=== PATIENT | female | born 1950 | race Caucasian/White ===

== ENCOUNTER 2017-10-14 09:38 | Emergency (ER) | payer BC ==
[~2017-10-14] VITALS: Ht 167.6 cm; Wt 99.5 kg
--- OUTSIDE RECORDS SUMMARY | ~2017-10-14 | XMS | Clinical Summary ---
Demographics + + + | Address | [address] | | | [place] [address] | + + + | Home Phone | | + + + | Preferred Language | Unknown | + + + | Marital Status | | + + + | Baptism Affiliation | Unknown | + + + | Race | White | + + + | Ethnic Group | Not or | + + + Author + + + | Author | [facility] | + + + | Organization | [facility] | + + + | Address | Unknown | + + + | Phone | Unavailable | + + + Support + + + + + | Name | Relationship | Address | Phone | + + + + + | ALBERTO Lenz | ECON | [address] | | | | | [place] | | | | | [address] | | + + + + + Care Team Providers + +------+ + | Care Shank Archer Name | Role | Phone | + +------+ + | Kevin Alonso MD | PP | | + +------+ + Source Comments DORIS is fully live on both [facility] and [facility] Allergies + + + + + + | Active Allergy | Reactions | Severity | Noted | Comments | | | | | Date | | + + + + + + | Oxycodone-Acetaminop | | | 02/16/20 | | | hen | | | 06 | | + + + + + + Current Medications + + +-------+---------+------+------+-------+ | Prescription | Sig. | Disp. | Refills | Star | End | Statu | | | | | | t | Date | s | | | | | | Date | | | + + +-------+---------+------+------+-------+ | liothyronine 5 mcg | take 2 tablets by | | | 02/0 | | Activ | | oral tablet | mouth once daily | | | 2/20 | | e | | | | | | 17 | | | + + +-------+---------+------+------+-------+ | buPROPion XL 300 | Take by mouth. | | | 09/0 | | Activ | | mg oral tablet | | | | 5/20 | | e | | extended release 24 | | | | 15 | | | | hr | | | | | | | + + +-------+---------+------+------+-------+ | ranitidine 300 mg | Take by mouth. | | | 09/0 | | Activ | | oral tablet | | | | 11/04 | | e | | | | | | 15 | | | + + +-------+---------+------+------+-------+ | pantoprazole 40 mg | Take by mouth. | | | 01/17 | | Activ | | oral tablet,delayed | | | | 03/07 | | e | | release (DR/EC) | | | | 15 | | | + + +-------+---------+------+------+-------+ | NYSTATIN (NYSTOP | as needed. | | | | | Activ | | TOP) | | | | | | e | + + +-------+---------+------+------+-------+ Active Problems + + + | Problem | Noted Date | + + + | Extranodal marginal zone B-cell lymphoma (HCC) | | + + + Social History + +-------+ +--------+------+ | Tobacco Use | Types | Packs/Day | Years | Date | | | | | Used | | + +-------+ +--------+------+ | Never Smoker | | | | | + +-------+ +--------+------+ + +---+---+---+ | Smokeless Tobacco: | | | | | Never Used | | | | + +---+---+---+ + + +---------+ + | Alcohol Use | Drinks/We | oz/Week | Comments | | | ek | | | + + +---------+ + | Yes | | | | + + +---------+ + + + + | Sex Assigned at | Date Recorded | | | | + + + | Not on file | | + + + Last Filed Vital Signs + + + + | Vital Sign | Reading | Time Taken | + + + + | Blood Pressure | 126/78 | 11/16/2016 11:26 AM PDT | + + + + | Pulse | 119 | 11/16/2016 11:26 AM PDT | + + + + | Temperature | 36.9 C (98.4 F) | 11/16/2016 11:26 AM PDT | + + + + | Respiratory Rate | 16 | 11/16/2016 11:26 AM PDT | + + + + | Oxygen Saturation | 98% | 11/16/2016 11:26 AM PDT | + + + + | Inhaled Oxygen | - | - | | Concentration | | | + + + + | Weight | 97.8 kg (215 lb 9.8 | 11/16/2016 11:26 AM PDT | | | oz) | | + + + + | Height | 168 cm (5' 6.14") | 11/16/2016 11:26 AM PDT | + + + + | Body Mass Index | 34.65 | 11/16/2016 11:26 AM PDT | + + + + Plan of Treatment + + + + + | Health Maintenance | Due Date | Last Done | Comments | + + + + + | INFLUENZA VACCINE | | | | | (FLU SHOT) | 8 | | | + + + + + Results Not on filefrom Last 3 Months
--- OUTSIDE RECORDS SUMMARY | ~2017-10-14 | XMS | Clinical Summary ---
Demographics + + + | Address | [address] [place] [address] | | | [place] [address] | + + + | Home Phone | | + + + | Preferred Language | Unknown | + + + | Marital Status | | + + + | Pentecostal Affiliation | 1077 | + + + | Race | Unknown | + + + | Ethnic Group | Unknown | + + + Author + + + | Author | [facility] | | | and [place] | + + + | Organization | [facility] | | | and [place] | + + + | Address | Unknown | + + + | Phone | Unavailable | + + + Support + + + + + | Name | Relationship | Address | Phone | + + + + + | Hiral Harris | ECON | NA | | | | | [place] | | + + + + + | Mahamed Lenz | ECON | [address] | | | | | [place] | | | | | [address] | | + + + + + Care Team Providers + +------+ + | Care Training Specialist Name | Role | Phone | + +------+ + | Kevin Alonso MD | PP | | + +------+ + Allergies + + + + + + | Active Allergy | Reactions | Severity | Noted | Comments | | | | | Date | | + + + + + + | Oxycodone | Rash | Low | 08/09/19 | | | | | | 14 | | + + + + + + | Adhesive & Tape | Other (See Comments) | | 08/09/19 | Skin sloughing | | | | | 14 | | + + + + + + Current Medications + + +-------+---------+------+------+-------+ | Prescription | Sig. | Disp. | Refills | Star | End | Statu | | | | | | t | Date | s | | | | | | Date | | | + + +-------+---------+------+------+-------+ | ALPRAZolam (XANAX) | Take 0.5 mg by mouth | | | | | Activ | | 0.5 mg tablet | 3 times daily as | | | | | e | | | needed. | | | | | | + + +-------+---------+------+------+-------+ | BUPROPION HCL | Take by mouth | | | | | Activ | | | Daily. Not sure of | | | | | e | | | dosage | | | | | | + + +-------+---------+------+------+-------+ | CALCIUM CARBONATE | by Does not apply | | | | | Activ | | | route. | | | | | e | + + +-------+---------+------+------+-------+ | ibuprofen (ADVIL, | Take 400 mg by mouth | | | | | Activ | | MOTRIN) 200 mg | every 6 hours as | | | | | e | | tablet | needed. | | | | | | + + +-------+---------+------+------+-------+ | levothyroxine | Take 200 mcg by | | | | | Activ | | (SYNTHROID, | mouth every morning | | | | | e | | LEVOTHROID) 175 MCG | (before breakfast). | | | | | | | tablet | | | | | | | + + +-------+---------+------+------+-------+ | Liothyronine | Take 3 tablets by | | | | | Activ | | Sodium (CYTOMEL PO) | mouth Daily. Does | | | | | e | | | not know the dosage | | | | | | + + +-------+---------+------+------+-------+ | UNABLE TO FIND | Apply 1 Application | | | | | Activ | | | topically as needed. | | | | | e | | | Med Name: | | | | | | | | Mycostatin Powder | | | | | | + + +-------+---------+------+------+-------+ | pantoprazole | Take 40 mg by mouth | | | | | Activ | | (PROTONIX) 40 mg | Daily. | | | | | e | | tablet | | | | | | | + + +-------+---------+------+------+-------+ | sertraline | Take 100 mg by mouth | | | | | Activ | | (ZOLOFT) 100 mg | Daily. | | | | | e | | tablet | | | | | | | + + +-------+---------+------+------+-------+ | cholecalciferol | Take 1,000 Units by | | | | | Activ | | (VITAMIN D-3) 1,000 | mouth Daily. | | | | | e | | units tablet | | | | | | | + + +-------+---------+------+------+-------+ Active Problems + + + | Problem | Noted Date | + + + | B-cell lymphoma (HCC) | 08/09/2013 | + + + + + | Overview: Recurrent/relapsed MALT lymphoma. Last Assessment | | & Plan: Continue maintenance Rituxan. She'll receive her last | | dose of maintenance Rituxan today | + + Social History + +-------+ +--------+------+ | Tobacco Use | Types | Packs/Day | Years | Date | | | | | Used | | + +-------+ +--------+------+ | Never Smoker | | | | | + +-------+ +--------+------+ + + + | Sex Assigned at | Date Recorded | | | | + + + | Not on file | | + + + Last Filed Vital Signs + + + + | Vital Sign | Reading | Time Taken | + + + + | Blood Pressure | 140/81 | 09/04/2013942 PDT | + + + + | Pulse | 70 | 09/04/2013942 PDT | + + + + | Temperature | 36.7 C (98.1 F) | 09/04/2013942 PDT | + + + + | Respiratory Rate | 16 | 09/04/2013942 PDT | + + + + | Oxygen Saturation | 97% | 09/04/2013942 PDT | + + + + | Inhaled Oxygen | - | - | | Concentration | | | + + + + | Weight | 93 kg (205 lb 0.4 | 09/04/2013942 PDT | | | oz) | | + + + + | Height | 168.5 cm (5' 6.34") | 09/04/2013942 PDT | + + + + | Body Mass Index | 32.75 | 09/04/2013942 PDT | + + + + Plan of Treatment +--------+---------+ + + + | Date | Type | Specialty | Care Team | Description | +--------+---------+ + + + | 10/17/ | Office | | Lan Call | | | 2017 | Visit | | MD Surendra [address] | | | | | | [place] | | | | | | [place] [address] | | | | | | [phone] | | | | | | | | +--------+---------+ + + + + + + + + | Health Maintenance | Due Date | Last Done | Comments | + + + + + | Hepatitis C | | | | | Screening | 3 | | | + + + + + | Vaccine: | | | | | Dtap/Tdap/Td (1 - | 2 | | | | Tdap) | | | | + + + + + | BREAST CANCER | | | | | SCREENING (MAMM Q2 | 3 | | | | YEARS 50-74) | | | | + + + + + | COLON CANCER | | | | | SCREENING | 3 | | | | (COLONOSCOPY EVERY | | | | | 10 YEARS 50-75) | | | | + + + + + | Vaccine: | | | | | Pneumococcal 65+ | 8 | | | | High/Highest Risk (1 | | | | | of 2 - PCV13) | | | | + + + + + | Vaccine: Influenza | | | | | (Season Ended) | 8 | | | + + + + + Results Not on filefrom Last 3 Months Insurance +-------+--------+ +------+-------+---------+ | Payer | Benefi | Subscriber | Type | Phone | Address | | | t Plan | ID | | | | | | / | | | | | | | Group | | | | | +-------+--------+ +------+-------+---------+ | BCBS | BCBS | xxxxxxxxx | PPO | | | | | FEDERA | | | | | | | L FEP | | | | | +-------+--------+ +------+-------+---------+ + +--------+ +--------+ + + | Guarantor Name | Accoun | Relation to | Date | Phone | Billing Address | | | t Type | Patient | of | | | | | | | | | | + +--------+ +--------+ + + | MARIANNE HARRIS | Person | Self [birth year] | Home: | [address] | | | al/Fam | | 1951 | [phone] | [place], | | | [place] | | | [phone] | [place] [phone] | + +--------+ +--------+ + +
--- OUTSIDE RECORDS SUMMARY | ~2017-10-14 | XMS | Clinical Summary ---
Demographics + + + | Address | [address] [place] [address] | | | [place] [address] | + + + | Home Phone | | + + + | Preferred Language | Unknown | + + + | Marital Status | | + + + | Scientologist Affiliation | 1077 | + + + | Race | Unknown | + + + | Ethnic Group | Unknown | + + + Author + + + | Author | [facility] | | | and [place] | + + + | Organization | [facility] | | | and [place] | [...] [place] | | | | | [address] | | + + + + + Care Team Providers + +------+ + | Care Horse Stud Worker Name | Role | Phone | + [...] | Visit | | MD Surendra [address] | | | | | | [place] | | | | | | [place] [address] | | | | | | [phone] | | | | | | | [...] | | al/Fam | | 1951 | [phone] | [place], | | | [place] | | | [address] | [place] [address] | + +--------+ +--------+ + +
--- OUTSIDE RECORDS SUMMARY | ~2017-10-14 | XMS | Encounter Summary ---
Demographics + + + | Address | [address] | | | [place] [address] | + + + | Home Phone | | + + + | Preferred Language | Unknown | + + + | Marital Status | | + + + | Restoration Affiliation | Unknown | + + + | Race | Unknown | + + + | Ethnic Group | Unknown | + + + Author + + + | Author | [facility] | + + + | Organization | [facility] | + + + | Address | Unknown | + + + | Phone | Unavailable | + + + Support + + + + + | Name | Relationship | Address | Phone | + + + + + | Mahamed Lenz | ECON | [address] | | | | | [place] | | | | | [address] | | + + + + + | Hiral Tran | ECON | Unknown | | + + + + + Care Team Providers + +------+ + | Care Marketing And Communications Officer Name | Role | Phone | + +------+ + | Kate Gibbs PA-C | PCP | | + +------+ + Reason for Visit +--------+ + | Reason | Comments | +--------+ + | Other | scheduling | +--------+ + Encounter Details +--------+ + + + + | Date | Type | Department | Care Team | Description | +--------+ + + + + | 10/12/ | Telephone | [facility] | Eli Hood, | Other (scheduling) | | 2018 | | Endocrinology [address] | [address] | | | | | [place] | | | | | | [place] | | | | | | [address] | | | | | | [phone] | | | +--------+ + + + + Social History + +-------+ [...] | | + + +---------+ + | No | 0 | 0.0 | rarely | | | Standard | | | | | drinks or | | | | | | | | | | equivalen | | | | | t | | | + + +---------+ + + + + | Sex Assigned at | Date Recorded | | | | + + + | Not on file | | + + + as of this encounter Plan of Treatment Not on fileas of this encounter Visit Diagnoses Not on filein this encounter"
--- OUTSIDE RECORDS SUMMARY | ~2017-10-14 | XMS | Clinical Summary ---
Demographics + + + | Address | [address] | | | [place] [address] | + + + | Home Phone | | + + + | Preferred Language | Unknown | + + + | Marital Status | | + + + | Yarsani Affiliation | Unknown | + + + | Race | Unknown | + + + | Ethnic Group | Unknown | + + + Author + + + | Author | [facility] | + + + | Organization | [facility] | + + + | Address | Unknown | + + + | Phone | Unavailable | + + + Support + + + + + | Name | Relationship | Address | Phone | + + + + + | Mahamed Lenz | ECON | [address] | | | | | [place] | | | | | [address] | | + + + + + | Hiral Tran | ECON | Unknown | | + + + + + Care Team Providers + +------+ + | Care Manager Of Organizational Development Name | Role | Phone | + +------+ + | Kate Gibbs PA-C | PP | | + +------+ + Allergies + + + + + + | Active Allergy | Reactions | Severity | Noted | Comments | | | | | Date | | + + + + + + | Oxycodone-Acetaminop | Rash | Medium | 03/16/20 | Full body rash, | | hen | | | 15 | fever | + + + + + + Current Medications + + +--------+---------+------+------+-------+ | Prescription | Sig. | Disp. | Refills | Star | End | Statu | | | | | | t | Date | s | | | | | | Date | | | + + +--------+---------+------+------+-------+ | buPROPion | Take 300 mg by mouth | | | 09/0 | | Activ | | (WELLBUTRIN XL) 300 | daily. | | | 5/20 | | e | | MG 24 hr tablet | | | | 15 | | | + + +--------+---------+------+------+-------+ | pantoprazole | Take 40 mg by mouth | | | 08/2 | | Activ | | (PROTONIX) 40 MG | daily. | | | 9/20 | | e | | tablet | | | | 15 | | | + + +--------+---------+------+------+-------+ | ranitidine | Take 300 mg by mouth | | | 09/0 | | Activ | | (ZANTAC) 300 MG | daily. | | | 5/20 | | e | | tablet | | | | 15 | | | + + +--------+---------+------+------+-------+ | Cholecalciferol | Take 2,000 Units by | | | | | Activ | | (VITAMIN D PO) | mouth. | | | | | e | + + +--------+---------+------+------+-------+ | meloxicam (MOBIC) | Take 7.5 mg by mouth | | | | | Activ | | 7.5 MG | daily. 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 | | | | | | | | of thyroid | | | | | | | + + +--------+---------+------+------+-------+ | liothyronine | take 2 tablets by | 60 | 11 | / | | Activ | | (CYTOMEL) 5 MCG | mouth once daily | tablet | | 02/04 | | e | | tablet | | | | 18 | | | + + +--------+---------+------+------+-------+ Active Problems + + + | Problem | Noted Date | + + + | Unspecified hypothyroidism | 03/16/2015 | + + + Encounters +--------+ + + + + | Date | Type | Specialty | Care Team | Description | +--------+ + + + + | 10/12/ | Telephone | | Eli Hood, | Other (scheduling) | | 2017 | | | DIRECTOR OF ARCHIVES | | +--------+ + + + + | 07/20/ | Documentati | | Tatum Johnston, | | | 2017 | on Only | | DIRECTOR OF ARCHIVES | | +--------+ + + + + from Last 3 Months Social History + +-------+ +--------+------+ | Tobacco [...] + + + | Blood Pressure | 142/72 | 10/31/2016 1:12 PM PDT | + + + + | Pulse | 79 | 03/14/2017 8:27 AM PDT | + + + + | Temperature | - | - | + + + + | Respiratory Rate | - | - | + + + + | Oxygen Saturation | 99% | 03/14/2017 8:27 AM PDT | + + + + | Inhaled Oxygen | - | - | | Concentration | | | + + + + | Weight | 96.6 kg (213 lb) | 03/14/2017 8:27 AM PDT | + + + + | Height | - | - | + + + + | Body Mass Index | - | - | + + + + Plan of Treatment + + + + + | Health Maintenance | Due Date | Last Done | Comments | + + + + + | Vaccine: | | | | | Dtap/Tdap/Td (1 - | 2 | | | | Tdap) | | | | + + + + + | Breast Cancer | | | | | Screening | 3 | | | | (Mammogram) | | | | + + + + + | Colon Cancer | | | | | Screening | 3 | | | | (Colonoscopy) | | | | + + + + + | DEXA SCAN SCREENING | | | | | | 8 | | | + + + + + | Vaccine: | | | | | Pneumococcal 65+ | 8 | | | | Low/Medium Risk (1 | | | | | of 2 - PCV13) | | | | + + + + + | Vaccine: Influenza | | | | | (Season Ended) | 8 | | | + + + + + Results Not on filefrom Last 3 Months Insurance +---------+--------+ +------+-------+ + | Payer | Benefi | Subscriber | Type | Phone | Address | | | t Plan | ID | | | | | | / | | | | | | | Group | | | | | +---------+--------+ +------+-------+ + | PREMERA | PREMER | xxxxxxxxx | | | [address] [facility] | | | A BLUE | | | | [place], [place] | | | [place] | | | | [address] | | | FED | | | | | | | PPO | | | | | +---------+--------+ +------+-------+ + + +--------+ +--------+ + + | Guarantor Name | Accoun | Relation to | Date | Phone | Billing Address | | | t Type | Patient | of | | | | | | | | | | + +--------+ +--------+ + + | MARIANNE HARRIS | Person | Self | [birth year] | Home: | [address] | | | [place]l | | 3 | [phone] | [place] | | | [place] | | | [phone] | [phone] | + +--------+ +--------+ + +"
--- OUTSIDE RECORDS SUMMARY | ~2017-10-14 | XMS | Encounter Summary ---
Demographics + + + | Address | [address] | | | [place] [address] | + + + | Home Phone | | + + + | Preferred Language | Unknown | + + + | Marital Status | | + + + | Spiritism Affiliation | Unknown | + + + | Race | Unknown | + + + | Ethnic Group | Unknown | + + + Author + + + | Author | [facility] | + + + | Organization | [facility] | + + + | Address | Unknown | + + + | Phone | Unavailable | + + + Support + + + + + | Name | Relationship | Address | Phone | + + + + + | Mahamed eLnz | ECON | [address] | | | | | [place] | | | | | [address] | | + + + + + | Hiral Tran | ECON | Unknown | | + + + + + Care Team Providers + +------+ + | Care Implementation Coordinator Name | Role | Phone | + +------+ + | Kate Gibbs PA-C | PCP | | + +------+ + Encounter Details +--------+ + + + + | Date | Type | Department | Care Team | Description | +--------+ + + + + | 07/20/ | Documentati | [facility] | Tatum Johnston, | | | 2018 | on Only | Endocrinology [address] | ENGINEER BOOSTER AND EXHAUSTER | | | | | [place] | | | | | | [employer] [place] | | | | | | [address] | | | | | | [phone] | | | +--------+ + + + [...] Treatment Not on fileas of this encounter Results EXTERNAL LAB: HEMOGLOBIN A1C (06/05/2017 1:55 PM) + +-------+ + | Component | Value | Ref Range | + +-------+ + | Hemoglobin A1c, | 5.7 | % | | External | | | + +-------+ + + + + | Specimen | Performing Laboratory | + + + | | [place] [address] [place] | | | [address] | + + + in this encounter Visit Diagnoses Not on filein this encounter"
--- OUTSIDE RECORDS SUMMARY | ~2017-10-14 | XMS | Clinical Summary ---
Demographics + + + | Address | [address] | | | [place] [address] | + + + | Home Phone | | + + + | Preferred Language | Unknown | + + + | Marital Status | | + + + | Sikh Affiliation | Unknown | + + + | Race | White | + + + | Ethnic Group | Not or | + + + Author + + + | Author | [facility] | + + + | Organization | [facility] | + + + | Address | Unknown | + + + | Phone | Unavailable | + + + Support + + + + + | Name | Relationship | Address | Phone | + + + + + | ALBERTO Lenz | ECON | [address] | | | | | [place] | | | | | [address] | | + + + + + Care Team Providers + +------+ + | Care Obstetrics Gyn Name | Role | Phone | + +------+ + | Kevin Alonso MD | PP | | + +------+ + Source Comments DORIS is fully live on both [facility] and [facility] Allergies + + + + + [...]
--- OUTSIDE RECORDS SUMMARY | ~2017-10-14 | XMS | Encounter Summary ---
Demographics + + + | Address | [address] | | | [place] [address] | + + + | Home Phone | | + + + | Preferred Language | Unknown | + + + | Marital Status | | + + + | Evangelical Affiliation | Unknown | + + + | Race | Unknown | + + + | Ethnic Group | Unknown | + + + Author + + + | Author | [facility] | + + + | Organization | [facility] | + + + | Address | Unknown | + + + | Phone | Unavailable | + + + Support + + + + + | Name | Relationship | Address | Phone | + + + + + | Mahamed Lenz | ECON | [address] | | | | | [place] | | | | | [address] | | + + + + + | Hiral Tran | ECON | Unknown | | + + + + + Care Team Providers + +------+ + | Care Geriatric Nurse Name | Role | Phone | + +------+ + | Kate Gibbs PA-C | PCP | | + +------+ + Encounter Details +--------+ + + + + | Date | Type | Department | Care Team | Description | +--------+ + + + + | 07/20/ | Documentati | [facility] | Tatum Johnston, | | | 2018 | on Only | Endocrinology [address] | MANAGING SUPERVISOR | | | | | [place] | | | | | | [place] | | | | | | [address] | | | | | | [phone] | | | +--------+ + + + [...] Laboratory | + + + | | [place] [address] [place] | | | [address] | + + + in this encounter Visit Diagnoses Not on filein this encounter"
--- OUTSIDE RECORDS SUMMARY | ~2017-10-14 | XMS | Encounter Summary ---
Demographics + + + | Address | [address] | | | [place] [address] | + + + | Home Phone | | + + + | Preferred Language | Unknown | + + + | Marital Status | | + + + | Buddhist Affiliation | Unknown | + + + | Race | Unknown | + + + | Ethnic Group | Unknown | + + + Author + + + | Author | [facility] | + + + | Organization | [facility] | + + + | Address | Unknown | + + + | Phone | Unavailable | + + + Support + + + + + | Name | Relationship | Address | Phone | + + + + + | Mahamed Lenz | ECON | [address] | | | | | [place] | | | | | [address] | | + + + + + | Hiral Tran | ECON | Unknown | | + + + + + Care Team Providers + +------+ + | Care Lombardi Developer Name | Role | Phone | + [...] + + | 10/12/ | Telephone | [facility] | Eli Hood, | Other (scheduling) | | 2018 | | Endocrinology [address] | TUTORIAL LABORATORY SUPERVISOR | | | | | [place] | | | | | | [place] | | | | | | [address] | | | | | | [phone] | | | +--------+ + + + [...]
--- OUTSIDE RECORDS SUMMARY | ~2017-10-14 | XMS | Clinical Summary ---
Demographics + + + | Address | [address] | | | [place] [address] | + + + | Home Phone | | + + + | Preferred Language | Unknown | + + + | Marital Status | | + + + | Pentecostal Affiliation | Unknown | + + + | Race | Unknown | + + + | Ethnic Group | Unknown | + + + Author + + + | Author | [facility] | + + + | Organization | [facility] | + + + | Address | Unknown | + + + | Phone | Unavailable | + + + Support + + + + + | Name | Relationship | Address | Phone | + + + + + | Mahamed Lenz | ECON | [address] | | | | | [place] | | | | | [address] | | + + + + + | Hiral Tran | ECON | Unknown | | + + + + + Care Team Providers + +------+ + | Care Judge Name | Role | Phone | + [...] (scheduling) | | 2017 | | | ADOBE LAYER HELPER | | +--------+ + + + + | 07/20/ | Documentati | | Tatum Johnston, | | | 2017 | on Only | | ADOBE LAYER HELPER | | +--------+ + + + + [...] | [phone] | | | [address] [facility] | | | A BLUE | | | | [place], [place] | | | CROSS | | | | [address] | | | FED | | | [...] | | | veronica | | | [address] | [phone] | + +--------+ +--------+ + +"
[~2017-10-14 09:38] MED LIST: ALPRAZOLAM0.5 MG PO; CYTOMEL5 MCG PO; LEVOTHYROXINE137 MCG PO; LEVOTHYROXINE200 MCG; LOTRIMIN10 ML TP; NYSTATIN100000 UN1 PO; PROTONIX40 MG PO; RANITIDINE HCL150 MG PO; SEPTRA DS TABL1 EACH PO; VITAMIN D2000 UNIT PO; WELLBUTRIN SR150 MG PO; ZOLOFT100 MG PO
[2017-10-14] MEDS ORDERED: NAPROSYN500 MG PO (12:22)
[2017-10-14] MEDS ORDERED: CYCLOBENZAPRINE5 MG PO (12:22)
[2017-10-14] MEDS ORDERED: NORCO 5-325 TA1 EACH PO (12:22)
== END 2017-10-14 12:46 | disposition home or self-care (01) ==
LOC: ED 09:38
DX: S32.029A Unspecified fracture of second lumbar vertebra, initial encounter for closed fracture (principal); Z88.5 Allergy status to narcotic agent; Z88.8 Allergy status to other drugs, medicaments and biological substances; Z79.899 Other long term (current) drug therapy; W01.0XXA Fall on same level from slipping, tripping and stumbling without subsequent striking against object, initial encounter
CPT/HCPCS: 72040; 72100; 99283

== ENCOUNTER 2018-03-08 12:13 | Day surgery (SDC) | payer BC ==
[~2018-03-08] VITALS: Ht 167.6 cm; Wt 92.1 kg
[~2018-03-08 12:13] MED LIST changes: +CALCITONIN-SAL3.7 ML; +CALCIUM600 MG PO; +CYCLOBENZAPRINE5 MG PO; +NAPROSYN500 MG PO; +NORCO 5-325 TA1 EACH PO
--- NOTE | 2018-03-08 14:04 | NUR ---
03/08/18 1404 Simi Bishop 1400 PATIENT ARRIVES TO PACU AWAKE AND TALKING, DENIES PAIN, ENCOURAGE TO PASS GAS. NC AT 2 LITERS, TURNED OFF ON ARRIVAL. RESP EVEN AND UNLABORED.
--- NOTE | 2018-03-08 23:36 | OR ---
[facility] [address] [place], [place] [address] Signed DATE OF OPERATION: 03/08/2018 SURGEON: Radha Medrano MD PREOPERATIVE DIAGNOSES: 1. History of right colon adenoma in 2010. 2. History of non-Hodgkin's lymphoma of parotid gland. POSTOPERATIVE DIAGNOSIS: Scattered diverticulitis sigmoid, otherwise normal. PROCEDURE: Total colonoscopy to cecum. ANESTHESIA: Intravenous sedation, fentanyl 150 mcg, Versed 7 mg. INDICATION: This 67-year-old white woman is a patient of KAREN Anderson as well as Dr. Chen Dave. She has a history of a non-Hodgkin's lymphoma of the parotid requiring resection in the past. She has undergone colonoscopy in 2010, which showed an adenoma. She is generally symptom-free as regards to colon. She is admitted at this time to undergo surveillance colonoscopy, understand the risks of bleeding, infection, and perforation. FINDINGS: The prep was good. Complete colonoscopy was undertaken at the cecum without question. There was no evidence of recurrent or persistent polyp. There were few scattered diverticula of the sigmoid colon. DESCRIPTION OF PROCEDURE: The patient was brought to the endoscopy suite and placed in lateral decubitus position, given intravenous sedation to the point of slurred speech and nystagmus with full cardiopulmonary monitoring. Digital rectal examination was normal. An Olympus video colonoscope was passed in the rectum and manipulated throughout the colon noting some diverticula of the sigmoid and left colon. Ultimately, the scope was passed to the cecum itself. The ileocecal valve and appendiceal orifice were normal. Irrigation was undertaken showing no sign of recurrent or persistent polyp. The scope was withdrawn from that point. Close inspection upon withdrawal of scope showed no sign of polyps or colitis, but did confirm diverticular change of the sigmoid to a small Electronically Signed By: RADHA MEDRANO MD 03/08/18 2336 PATIENT NAME: LORETA YOUNG OPERATIVE REPORT DATE OF : 54 REPORT #: [id number] PHYSICIAN: RADHA MEDRANO MD PCP: LUCILLE HOLLAND MD REPORT IS CONFIDENTIAL AND NOT TO BE RELEASED WITHOUT AUTHORIZATION [facility] [address] [place], [place] [address] Signed degree. Retroflexed view of the rectum demonstrated internal hemorrhoids. They were not bleeding nor with any sign of abnormality otherwise. The scope was straightened, withdrawn, and removed, and the patient was taken to recovery in good condition. CONCLUDING DIAGNOSES: Internal hemorrhoids without symptoms. Scattered diverticula. PLAN: Recommend high-fiber diet. Repeat colonoscopy to be considered in 5 years, sooner if clinically indicated. She will return to the ongoing care of . KAREN Anderson. MD DONNIE Ferrell/ABRAHAML /[id number] Copies: ~ Electronically Signed By: RADHA MEDRANO MD 03/08/18 2336 PATIENT NAME: LORETA YOUNG OPERATIVE REPORT DATE OF : 54 REPORT #: [id number] PHYSICIAN: RADHA MEDRANO MD PCP: LUCILLE HOLLAND MD REPORT IS CONFIDENTIAL AND NOT TO BE RELEASED WITHOUT AUTHORIZATION
== END 2018-03-08 14:30 | disposition home or self-care (01) ==
LOC: DS 12:13 → OPS 12:13
PROVIDERS: Surgery
PROC: 0DJD8ZZ Inspection of Lower Intestinal Tract, Via Natural or Artificial Opening Endoscopic (ICD-10-PCS; principal; 2018-03-08 13:00)
DX: Z12.11 Encounter for screening for malignant neoplasm of colon (principal); K64.8 Other hemorrhoids; K57.30 Diverticulosis of large intestine without perforation or abscess without bleeding; K21.0 Gastro-esophageal reflux disease with esophagitis; E66.9 Obesity, unspecified; G47.30 Sleep apnea, unspecified; K74.60 Unspecified cirrhosis of liver; E03.9 Hypothyroidism, unspecified; Z86.010 Personal history of colon polyps; Z85.72 Personal history of non-Hodgkin lymphomas; Z88.8 Allergy status to other drugs, medicaments and biological substances; Z91.048 Other nonmedicinal substance allergy status; Z99.89 Dependence on other enabling machines and devices
CPT/HCPCS: 99153; G0500; J2250; J3010; J7120

== ENCOUNTER 2023-02-12 11:54 | Day surgery (SDC) | payer MEDICARE, BC ==
[~2023-02-12] VITALS: Ht 167.6 cm; Wt 91.4 kg
[2023-02-12 12:08] VITALS: BP 142/82
[2023-02-12] MEDS ORDERED: RITUXAN10 MG/1 ML IV (12:14)
--- NOTE | 2023-02-12 13:44 | NUR ---
02/12/23 1344 Elisha Hastings 1340-PT TO PACU IN LL POSITION. EYES CLOSED. PT DENIES PAIN AND NAUSEA. BREATHING EASY AND UNLABORED. SPO2 >95% ON 2. O2 VIA NC. PT ENCOURAGED TO TAKE DEEP BREATHS AND EDUCATED ABOUT POC FOR PACU. 1344-PT AWAKENS SPONTANEOUSLY AND ASKS QUESTIONS APPROPRAITELY. BREATHING EASY AND UNLABORED. SPO2 >90% ON 2 L O2 VIA NC.
[2023-02-12 14:15] VITALS: BP 124/67
--- NOTE | 2023-02-15 09:06 | PATH ---
[facility] [address] [place], [place] [address] Signed SPECIMEN(S): A DUODENAL BIOPSY SPECIMEN(S): B ANTRUM/PYLORUS BIOPSY SPECIMEN(S): C GASTRIC POLYP SPECIMEN(S): D LOW ESOPHAGEAL BIOPSY SPECIMEN(S): E MID ESOPHAGEAL BIOPSY SPECIMEN SOURCE: A. DUODENAL BIOPSY B. ANTRUM/PYLORUS BIOPSY C. GASTRIC POLYP D. LOW ESOPHAGEAL BIOPSY E. MID ESOPHAGEAL BIOPSY CLINICAL HISTORY: Upper abdominal pain, GERD. Hx distal esophagitis, gastritis, hiatal hernia, gastric polyps. FINAL PATHOLOGIC DIAGNOSIS: A. Duodenum, biopsy: - Benign duodenal mucosa with no significant pathologic abnormality. - No celiac sprue identified by histology. - No ulcer or dysplasia identified. B. Antrum/pylorus of stomach, biopsy: - Mild chronic gastritis. - No Helicobacter organisms identified by immunohistochemistry stain. - No ulcer, dysplasia, or intestinal metaplasia identified. C. Gastric polyp: - Benign fundic gland polyp. - No Helicobacter organisms identified by HE stain. - No ulcer, dysplasia, or intestinal metaplasia identified. D. Low esophagus, biopsy: - Fragments of benign esophageal squamous mucosa with no intramucosal eosinophils. - Benign gastric mucosa with mild nonspecific chronic inflammation. - No Helicobacter organisms identified by routine stain. - No ulcer, dysplasia, or intestinal metaplasia identified. E. Mid esophagus, biopsy: - Benign esophageal squamous mucosa with no significant pathologic abnormality. - No intramucosal eosinophils identified. PATIENT NAME: HECTORLORETA PATHOLOGY DATE OF : 54 REPORT #: [id number] PHYSICIAN: SAM ZAMORA PCP: KHLOE ERICKSON PAC REPORT IS CONFIDENTIAL AND NOT TO BE RELEASED WITHOUT AUTHORIZATION [facility] [address] [place], [place] [address] Signed - No ulcer, dysplasia, or intestinal metaplasia identified. [facility] MICROSCOPIC EXAMINATION: Histologic sections of all submitted blocks are examined by light microscopy. These findings, together with the gross examination, support the pathologic diagnosis. [facility] GROSS DESCRIPTION: A. The specimen, labeled and designated "Maura Harris," and designated on the requisition "duodenum, NOS biopsy," is received in formalin and consists of five navarrete soft tissue fragments measuring 0.4 x 0.4 cm in greatest dimension. Specimens are submitted entirely in (A1). B. The specimen, labeled and designated "Maura Harris," and designated on the requisition "stomach, antrum/pylorus biopsy," is received in formalin and consists of three navarrete soft tissue fragments measuring 0.2 x 0.4 cm in greatest dimension, specimens are submitted entirely in (B1). C. The specimen, labeled and designated "Maura Harris," and designated on the requisition "gastric polyp biopsy," is received in formalin and consists of one navarrete soft tissue fragments measuring 0.3 x 0.4 cm is submitted entirely in (C1). D. The specimen, labeled and designated "Maura Harris," and designated on the requisition "esophagus, lower esophagus biopsy," is received in formalin and consists of three white-navarrete soft tissue fragments measuring 0.4 x 0.5 cm in greatest dimension, specimens are submitted entirely in (D1). E. The specimen, labeled and designated "Maura Harris" and designated on the requisition "esophagus mi esophagus biopsy," is received in formalin and consists of four white-navarrete soft tissue fragments measuring 0.3 x 0.4 cm in greatest dimension, specimens are submitted entirely in (E1). MMA (under the direct supervision of a pathologist) The Gross Description was prepared using a voice recognition system. The report was reviewed for accuracy; however, sound-alike word errors, addition and/or deletions may occur. If there is any question about this report, please contact Client Services. PERFORMING LABORATORY: Technical component was performed by [facility], [facility], PATIENT NAME: LORETA HARRIS PATHOLOGY DATE OF : 54 REPORT #: [id number] PHYSICIAN: SAM ZAMORA PCP: KHLOE ERICKSON PAC REPORT IS CONFIDENTIAL AND NOT TO BE RELEASED WITHOUT AUTHORIZATION [facility] [address] [place] [address] [place] [address] (CLIA# [id number]). Professional interpretation was performed by [facility] - [facility], [address] [place] [id number] (CLIA#: [id number]). Diagnostician: Deonte Franco MD Pathologist Electronically Signed 02/15/2023 Copies: ~ PATIENT NAME: LORETA HARRIS PATHOLOGY DATE OF : 54 REPORT #: [id number] PHYSICIAN: SAM PATHOLOGY PCP: KHLOE ERICKSON PAC REPORT IS CONFIDENTIAL AND NOT TO BE RELEASED WITHOUT AUTHORIZATION
--- NOTE | 2023-02-15 10:42 | OR ---
[facility] [address] [place], [place] [address] Signed DATE OF OPERATION: 02/12/2023 SURGEON: Radha Medrano MD PREOPERATIVE DIAGNOSES: 1. Longstanding gastroesophageal reflux, proton pump inhibitor use. 2. History of non-Hodgkin's lymphoma in 2006 (diagnosis parotid biopsy). 3. Splenomegaly and low-grade thrombocytopenia. POSTOPERATIVE DIAGNOSES: Gastric polyps and poor flap valve. No evidence of esophagitis. No evidence of varices. PROCEDURE: Esophagogastroduodenoscopy with biopsy. ANESTHESIA: Intravenous sedation, fentanyl 100 mcg and Versed 5 mg. INDICATION: This is a 72-year-old white woman who is a patient of KAREN Anderson. She has a longstanding history of reflux disease for which she takes PPI medication, Protonix. She last underwent endoscopy in 2014 showing gastritis and mild esophagitis. She does have persistent cough from time to time, which may be reflux related. She does have some left upper abdominal pain. Notably, she has non-Hodgkin's lymphoma since 2006, diagnosed by parotid biopsy. Chemotherapy including Rituxan and radiation therapy was administered. She is noted to have an enlarged spleen, platelets are currently 114,000, white count 3.03, hematocrit 32. Spleen was noted to be enlarged to 16 cm. She is admitted at this time to undergo upper endoscopy to better characterize her left abdominal pain, assess for varices and peptic disease and esophagitis given her history. She understands risk of bleeding, infection, and perforation and wished to proceed. FINDINGS: There is no evidence of esophagitis or gastritis proper. She had no esophageal varices. There were some gastric polyps, likely related to long-standing PPI use. CLOtest was negative at 20 minutes post procedure. DESCRIPTION OF PROCEDURE: The patient was brought to the endoscopy suite and placed in lateral decubitus position given intravenous sedation to the point of slurred speech and nystagmus. Full cardiopulmonary monitoring was maintained. Electronically Signed By: RADHA MEDRANO MD 02/15/23 1042 PATIENT NAME: LORETA YOUNG OPERATIVE REPORT DATE OF : 54 REPORT #: [id number] PHYSICIAN: RADHA MEDRANO MD PCP: KHLOE ERICKSON PAC REPORT IS CONFIDENTIAL AND NOT TO BE RELEASED WITHOUT AUTHORIZATION [facility] [address] [place], [place] [address] Signed A bite block was placed after lidocaine hypopharyngeal anesthesia was administered. An Olympus video upper endoscope was passed in the hypopharynx. Vocal cords appeared normal. Scope was advanced to the esophagus throughout its length, it was normal. There was no evidence of Yoder's epithelium, esophagitis, stricture or other problem. There are certainly no varices. The scope was advanced to the stomach, which was insufflated with air. Rugal folds were normal. Pylorus was normal. Scope was passed through into the duodenum, which was also normal. Biopsies were taken of the duodenum to assess for celiac disease. Scope was withdrawn. Biopsies taken of the antrum and more proximal stomach for both TREASURE and pathologic testing. Retroflexed view showed a rather poor flap valve, but no sign of large hiatal hernia proper. The scope was straightened withdrawn biopsies then taken of distal esophagus, though it appeared normal endoscopically. Biopsies were taken at the midesophagus as well. The scope was further withdrawn and no other findings of note. The patient was taken to the recovery room in good condition, having suffered no complications. CONCLUUDING DIAGNOSIS: Clinical reflux well managed with PPI medication. No evidence of ulceration or neoplasm. No varices. PLAN: Recommend continued use of PPI medication. Protonix 40 mg p.o. daily. She will return to the ongoing care to KAREN Anderson and Dr. Vineet Adler. MD DONNIE Ferrell/ABRAHAML /[id number] Copies: ~ Electronically Signed By: RADHA MEDRANO MD 02/15/23 1042 PATIENT NAME: LORETA YOUNG OPERATIVE REPORT DATE OF : 54 REPORT #: [id number] PHYSICIAN: RADHA MEDRANO MD PCP: KHLOE ERICKSON PAC REPORT IS CONFIDENTIAL AND NOT TO BE RELEASED WITHOUT AUTHORIZATION
== END 2023-02-12 14:15 | disposition home or self-care (01) ==
LOC: DS 11:54 → OPS 11:54 → DS 13:00 → OPS 13:00 → DS 02-13 09:45
PROVIDERS: ATTEND Surgery
PROC: 0DB68ZX Excision of Stomach, Via Natural or Artificial Opening Endoscopic, Diagnostic (ICD-10-PCS; 2023-02-12)
PROC: 0DB28ZX Excision of Middle Esophagus, Via Natural or Artificial Opening Endoscopic, Diagnostic (ICD-10-PCS; 2023-02-12)
PROC: 0DB98ZX Excision of Duodenum, Via Natural or Artificial Opening Endoscopic, Diagnostic (ICD-10-PCS; principal; 2023-02-12 13:00)
DX: K31.7 Polyp of stomach and duodenum (principal); K21.9 Gastro-esophageal reflux disease without esophagitis; D69.6 Thrombocytopenia, unspecified; Z85.72 Personal history of non-Hodgkin lymphomas; E66.9 Obesity, unspecified; Z68.32 Body mass index [BMI] 32.0-32.9, adult; K29.50 Unspecified chronic gastritis without bleeding
CPT/HCPCS: 88305; 88342; 99153; G0500; J2250; J3010; J7121

== ENCOUNTER 2024-07-10 11:44 | Day surgery (SDC) | payer MEDICARE, BC ==
[~2024-07-10] VITALS: Ht 167.6 cm; Wt 90.0 kg
--- NOTE | ~2024-07-10 | OR ---
[facility] [address] [place], [place] [address] Draft DATE OF OPERATION: 07/10/2024 SURGEON: Radha Medrano MD PREOPERATIVE DIAGNOSES: 1. Episodic diarrhea. 2. Known non-Hodgkin's lymphoma with possible recurrence. POSTOPERATIVE DIAGNOSES: 1. Small polyp proximal descending colon. 2. Normal-appearing colon otherwise. PROCEDURES: 1. Total colonoscopy to cecum with biopsy of cecum and rectum. 2. Cold morcellation polypectomy x1. ANESTHESIA: Intravenous sedation; fentanyl 150 mcg, Versed 6 mg. INDICATION: This 73-year-old white woman is a patient of KAREN Anderson. She is additionally patient of Dr. Parrish Gong of the [facility] in [place], [place]. She has been under treatment for non-Hodgkin's lymphoma. She last underwent colonoscopy in 2018 and was referred for consideration of colonoscopy now. Notably, she underwent upper endoscopy a year ago assessing for varices, which was negative. She did have splenomegaly thought likely due to persistence or recurrence of lymphoma. Her colonoscopy in 2018 did demonstrate scattered diverticula of the sigmoid, but no evidence of polyps. She had a right-sided colonic adenoma resected in 2010. She does have significant fecal urgency and diarrhea sometimes. She has had no blood per rectum. She has no family history of colon cancer. She is admitted at this time to undergo colonoscopy to better characterize her problem. She understands the risk of bleeding, infection, and perforation. FINDINGS: The prep was excellent. Complete colonoscopy was undertaken of the cecum. The colon showed no evidence of colitis but did show diverticula of the left colon. She had one small adenomatous polyp in the proximal descending colon which was excised. Biopsies taken of the cecum and the rectum to assess for occult colitis. DESCRIPTION OF PROCEDURE: PATIENT NAME: LORETA YOUNG OPERATIVE REPORT DATE OF : 54 REPORT #: [id number] PHYSICIAN: RADHA MEDRANO MD PCP: KHLOE CHAUHAN PAC REPORT IS CONFIDENTIAL AND NOT TO BE RELEASED WITHOUT AUTHORIZATION [facility] [address] [place], [place] [address] Draft The patient was brought to the endoscopy suite and placed in the lateral decubitus position, given intravenous sedation to the point of slurred speech and nystagmus. Digital rectal examination was normal. An Olympus video colonoscope was passed in the rectum and manipulated throughout the colon ultimately intubating the cecal area. Irrigation was undertaken. The cecum appeared normal. Biopsies were taken nevertheless to assess for occult colitis. The scope was then withdrawn. Examination undertaken showing no sign of abnormality into the proximal descending colon where small adenomatous polyp was noted. This was excised with cold morcellation technique. Further withdrawal showed diverticula of the left colon and sigmoid. The rectum appeared normal. Biopsies were obtained nevertheless. The scope was removed and the patient was taken to the recovery room in good condition. CONCLUDING DIAGNOSES: 1. Uncertain etiology of diarrhea. No sign of overt colitis. Biopsies taken to assess for occult colitis. 2. Additionally she is noted to have an adenomatous appearing polyp of the left colon. PLAN: Would recommend repeat colonoscopy in 10 years, sooner if symptoms should develop. If her diarrhea is persistent, I am happy to assist in its management for symptom control, though I think it is unlikely that it is related to a pathologic finding of colitis. The extent to which her therapy for lymphoma or lymphoma itself contributes to this is uncertain, but relatively unlikely at this time. MD DONNIE Ferrell/MODL /[id number] cc: Dr. Parrish Chauhan PA-C Copies: KHLOE CHAUHAN PATIENT NAME: LORETA YOUNG OPERATIVE REPORT DATE OF : 54 REPORT #: [id number] PHYSICIAN: RADHA MEDRANO MD PCP: KHLOE CHAUHAN REPORT IS CONFIDENTIAL AND NOT TO BE RELEASED WITHOUT AUTHORIZATION [facility] [address] [place] [address] Draft ~ PATIENT NAME: LORETA YOUNG OPERATIVE REPORT DATE OF : 54 REPORT #: [id number] PHYSICIAN: RADHA MEDRANO MD PCP: KHLOE CHAUHAN PAC REPORT IS CONFIDENTIAL AND NOT TO BE RELEASED WITHOUT AUTHORIZATION
[~2024-07-10 11:44] MED LIST changes: +IBLOOD GLUCOSE TEST STRIP 1 EA TEST VI PRN; +LACTATED RINGER'S 1,000 ML IV SCH; +LIDOCAINE HCL 1% 5 ML SDV INJ ONE; +MIDAZOLAM HCL 5 MG/5 ML VIAL IV PRN; +RITUXAN10 MG/1 ML IV; +fentaNYL citrate 100 MCG/2 ML VIAL IV PRN
[2024-07-10 12:06] VITALS: BP 149/73
[2024-07-10] MEDS ORDERED: BRUKINSA80 MG PO (12:25)
[2024-07-10] MEDS ORDERED: CLOTRIMAZOLE45 G1 (12:28)
[2024-07-10] MEDS ORDERED: SERTRALINE HCL100 MG PO (12:29)
[2024-07-10] MEDS ORDERED: MIDAZOLAM HCL 5 MG/5 ML VIAL ONE (14:09)
[2024-07-10] MEDS ORDERED: fentaNYL citrate 100 MCG/2 ML VIAL ONE ×2 (14:09→14:36)
--- NOTE | 2024-07-10 15:19 | NUR ---
07/10/24 1519 Kat Chowdhury 1501- PT ARRIVES TO THE PACU WITH A NATURAL AIRWAY ON 2L OF O2 VIA NC. BREATHING IS EVEN AND UNLABORED. PT HAS EYES OPEN AND IS LOOKING AROUND THE PACU. PT IS ORIENTED TO THE PACU. PT DENIES PAIN AND NAUSEA. PT ABDOMEN IS SOFT AND NONDISTENDED. PT IS ENCOURAGED TO PASS GAS. PT PASSING GAS OFF AND ON. PT DENIES NAUSEA AND RATES HER PAIN AT 5/10. WILL CONTINUE TO MONITOR. 1510- PT RATES PAIN AT A 5/10 AND REPORTS FEELING BETTER WITH PASSING THE GAS. O2 TURNED OFF AT THIS TIME. PT IS MAINTAINING SATS ABOVE 95%. 1513- MD AT BEDSIDE TALKING WITH PT ABOUT PLAN OF CARE. PT QUESTIONS AND CONCERNS ARE ANSWERED.
[2024-07-10 15:42] VITALS: BP 119/63
--- NOTE | 2024-07-11 14:46 | PATH ---
[facility] [address] [place], [place] [address] Signed SPECIMEN(S): A ASCENDING COLON BIOPSY SPECIMEN(S): B DESCENDING COLON POLYP SPECIMEN(S): C RECTUM BIOPSY SPECIMEN SOURCE: A. ASCENDING COLON BIOPSY B. DESCENDING COLON POLYP C. RECTUM BIOPSY CLINICAL HISTORY: History of diverticuli, fecal urgency, diarrhea FINAL PATHOLOGIC DIAGNOSIS: A. Colon, ascending, biopsy: - Colonic mucosa with no significant pathologic changes B. Colon, descending, polypectomy: - Tubular adenoma C. Rectum, biopsy: - Colonic mucosa with no significant pathologic changes BRP MICROSCOPIC EXAMINATION: Histologic sections of all submitted blocks are examined by light microscopy. These findings, together with the gross examination, support the pathologic diagnosis. GROSS DESCRIPTION: A. The specimen, labeled and designated "[place], ascending colon biopsy," is received in formalin and consists of three navarrete soft tissue fragments, ranging from 0.1-0.3 cm. Entirely submitted in (A1). B. The specimen, labeled and designated "[place], descending colon polyp," is received in formalin and consists of six navarrete soft tissue fragments, ranging from 0.1-0.4 cm. Entirely submitted in (B1). C. The specimen, labeled and designated "[place], rectum biopsy," is received in formalin and consists of two navarrete soft tissue fragments, ranging from 0.2-0.4 cm. Entirely submitted in (C1). VB (under the direct supervision of a pathologist) The Gross Description was prepared using a voice recognition system. The report was reviewed for accuracy; however, sound-alike word errors, addition and/or deletions may occur. If there is any question about this report, please contact Client Services. PATIENT NAME: LORETA YOUNG PATHOLOGY DATE OF : 54 REPORT #: [id number] PHYSICIAN: SAM ZAMORA PCP: KHLOE ERICKSON PAC REPORT IS CONFIDENTIAL AND NOT TO BE RELEASED WITHOUT AUTHORIZATION [facility] [address] [place], [place] [address] Signed ADDITIONAL NOTES: Immunohistochemical and/or in situ hybridization studies if performed in this case included appropriate positive controls that reacted as expected. This test was developed and its performance characteristics determined by [facility]. It has not been cleared or approved by the U.S. Food and Drug Administration. The FDA has determined that such clearance or approval is not necessary. This test is used for clinical purposes. It should not be regarded as investigational or for research. [facility] is certified under the Clinical Laboratory Improvement Amendments of 1988 (CLIA) as qualified to perform high complexity clinical laboratory testing. PERFORMING LABORATORY: Technical component was performed by [facility], [address] [place] [address] (CLIA# [id number]). Professional interpretation was performed by [facility] - [facility], [address] [place] [address] (CLIA#: [id number]). Diagnostician: Gerber Vegas MD Pathologist Electronically Signed 07/11/2024 Copies: ~ PATIENT NAME: LORETA YOUNG PATHOLOGY DATE OF : 54 REPORT #: [id number] PHYSICIAN: SAM ZAMROA PCP: KHLOE ERICKSON PAC REPORT IS CONFIDENTIAL AND NOT TO BE RELEASED WITHOUT AUTHORIZATION
== END 2024-07-10 15:50 | disposition home or self-care (01) ==
LOC: DS 11:44
PROVIDERS: ATTEND Surgery
PROC: 0DBP8ZZ Excision of Rectum, Via Natural or Artificial Opening Endoscopic (ICD-10-PCS; 2024-07-10)
PROC: 0DBM8ZZ Excision of Descending Colon, Via Natural or Artificial Opening Endoscopic (ICD-10-PCS; 2024-07-10)
PROC: 0DBK8ZZ Excision of Ascending Colon, Via Natural or Artificial Opening Endoscopic (ICD-10-PCS; principal; 2024-07-10 13:00)
DX: D12.4 Benign neoplasm of descending colon (principal); K63.5 Polyp of colon; K52.9 Noninfective gastroenteritis and colitis, unspecified; Z79.899 Other long term (current) drug therapy; Z88.8 Allergy status to other drugs, medicaments and biological substances; Z90.711 Acquired absence of uterus with remaining cervical stump; Z90.09 Acquired absence of other part of head and neck; K62.89 Other specified diseases of anus and rectum
CPT/HCPCS: 99153; G0500; J2250; J3010; J7121